=== PATIENT | female | born 1980 | race Caucasian/White ===

== ENCOUNTER 2021-05-06 01:01 | Emergency (ER) | payer OTHER, SELFPAY ==
[2021-05-06 01:10] VITALS: BP 116/63; PULSE 74; RESP 14; TEMP 36.8; O2SAT 100
--- NOTE | 2021-05-06 01:27 | ED.EXTPRO ---
HPI - Extremity Problem General Chief complaint: Extremity Problem,Nontraumatic Stated complaint: right arm pain Time Seen by Provider: 05/06/21 01:04 History of Present Illness HPI Narrative: RUE pain for the past three days. Originates over the carpal tunnel and radiates throughout the anterior forearm. Worse with finger and wrist flexion. Associated with mild paresthesias in her hadn. She has a h/o carpal tunnel syndrome, but this is worse. No trauma, swelling, weakness, fever. Related Data Allergies Allergy/AdvReac Type Severity Reaction Status Date / Time ephedrine Allergy Mild Unknown Verified 05/06/21 01:23 Review of Systems Constitutional: Constitutional: Denies fever(s) and Denies weakness Cardiovascular: Cardiovascular: Denies chest pain Respiratory: Respiratory: Denies dyspnea Musculoskeletal: Musculoskeletal: Denies back pain and Denies joint swelling Neurologic: Reports as per HPI [facility] Past Medical History Medical History (Updated 05/12/21 @ 15:47 by Allen Farnsworth MD) Carpal tunnel syndrome Social History Social History (Updated 05/12/21 @ 15:47 by Allen Farnsworth MD) Substance use: never Gender identity (if verbalized by the patient): Female Sexual Orientation (if Verbalized by the Patient): Straight or Heterosexual Exam Const: General: healthy appearing, no acute distress and alert Orientation/consciousness: patient oriented x3 Neck: Neck: normal visual inspection Resp: Effort & Inspection: normal respiratory effort Auscultation: clear to auscultation bilaterally Cardio: Rate: regular rate Rhythm: regular rhythm Skin: General skin exam: normal color Rashes: no rashes Wounds: no wounds Neuro: General: patient oriented x3, moves all extremities and no focal motor deficits Speech: normal speech Gait exam (Neuro): Normal gait present Other: 5/5 strength. sensation intact Extrem: Other: Right forearm minimally larger than left. Tender over carpal tunnel. Course Vital Signs Vital signs: Vital Signs Temperature 36.8 C 05/06/21 01:10 Pulse Rate 74 05/06/21 01:10 Respiratory Rate 14 05/06/21 01:10 Blood Pressure 116/63 05/06/21 01:10 Pulse Oximetry 100 05/06/21 01:10 Temperature 36.8 C 05/06/21 01:10 Pulse Rate 74 05/06/21 01:10 Respiratory Rate 14 05/06/21 01:10 Blood Pressure 116/63 05/06/21 01:10 Pulse Oximetry 100 05/06/21 01:10 MDM - Extremity (Nontraumatic) MDM Narrative Medical decision making narrative: H&P consistent with carpal tunnel syndrome. Discharge Plan Discharge Clinical Impression: Acute carpal tunnel syndrome of right wrist Patient Disposition: Home, Self-Care Condition: Stable Instructions: Arm Pain (ED) Prescriptions: New prednisone 20 mg tablet 60 mg PO DAILY 4 Days Qty: 12 RF: 0 Follow-up/Referrals: Lia,MD Nell [Primary Care Provider] -
[2021-05-06] MEDS: HYDROcodone/acetaminophen (*CRX) 5-325 MG TABLET 1 TAB PO (01:45)
[2021-05-06] MEDS: predniSONE 20 MG TABLET 60 MG PO (01:45)
== END 2021-05-06 01:55 | disposition home or self-care (01) ==
PROVIDERS: Emergency Provider Emergency Medicine; PCP Internal Medicine Geriatric Medicine
DX: G56.01 Carpal tunnel syndrome, right upper limb (principal)
CPT/HCPCS: 99283; A9270; J7512